=== PATIENT | female | born 2005 | race Caucasian/White ===

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

== ENCOUNTER 2024-07-17 09:41 | Emergency (ER) | payer OTHER ==
[~2024-07-17] VITALS: Ht 165.1 cm; Wt 69.4 kg
[2024-07-17] MEDS ORDERED: Ketorolac Tromethamine 30mg Vial IV ONE (09:55)
[2024-07-17] MEDS ORDERED: IBUP600 PO (11:20)
[2024-07-17 12:30] VITALS: BP 132/81
== END 2024-07-17 12:42 | disposition home or self-care (01) ==
LOC: ER 09:41
DX: S16.1XXA Strain of muscle, fascia and tendon at neck level, initial encounter (principal); V49.9XXA Car occupant (driver) (passenger) injured in unspecified traffic accident, initial encounter; W22.11XA Striking against or struck by driver side automobile airbag, initial encounter
CPT/HCPCS: 96374; 99283-25; J1885